=== PATIENT | female | born 1980 | race Caucasian/White ===

== ENCOUNTER 2017-09-27 00:02 | Inpatient (IN) | payer OTHER ==
[~2017-09-27] VITALS: Ht 165.1 cm; Wt 97.7 kg
[2017-09-27 00:34] LABS: HEMATOCRIT 36.1 % (36.0-46.0); MCH 27.6 PG (29.0-34.0); MCHC 33.2 G/DL (30.0-36.0); PLATELET COUNT 314 K/uL (156-360); RBC DIS.WIDTH-CV 14.4 % (11.8-14.6); RBC DIS.WIDTH-SD 43.3 % (39-53); RED BLOOD COUNT 4.35 M/uL (3.80-5.20); WHITE BLOOD COUNT 10.5 K/uL (4.1-10.2)
[2017-09-27 01:02] LABS: TROP-I INTERPRETATION NEGATIVE; TROPONIN-I < 0.01 ng/mL (0.0-0.30)
[2017-09-27 01:08] LABS: CHLORIDE 106 mEq/L (99-109); POTASSIUM 4.1 mEq/L (3.7-5.4); SODIUM 137 mEq/L (136-147)
[2017-09-27 01:09] LABS: GLUCOSE 105 mg/dL (70-99)
[2017-09-27 01:13] LABS: CREATININE 0.6 mg/dL (0.6-1.3)
[2017-09-27 01:14] LABS: UREA NITROGEN (BUN) 16 mg/dL (9-23)
[2017-09-27 01:17] LABS: GFR ESTIMATE (CALCULATED) > 59 mL/min/
[2017-09-27 04:46] VITALS: BP 130/83
[2017-09-27 04:49] LABS: CREATINE KINASE 2325 IU/L (1-294); HDL CHOLESTEROL 56 MG/DL (Desirable>=50); LDL CHOLESTEROL 146 mg/dL (Desirable<100); NON-HDL CHOLESTEROL 201 mg/dL (Desirable<160); TOTAL CHOLESTEROL 257 mg/dL (Desirable<200); TRIGLYCERIDES 274 MG/DL (Normal: <150)
[2017-09-27 07:11] VITALS: BP 110/71
[2017-09-27 10:00] LABS: HEMOGLOBIN A1c (GLYCOHEMOGLOB) 5.7 % (Below 5.7)
[2017-09-27 11:24] VITALS: BP 129/75
[2017-09-27] MEDS ORDERED: TYLENOL EXTRA500 MG PO (11:51)
[2017-09-27] MEDS ORDERED: MOTRIN IB200 MG PO (11:52)
[2017-09-27 12:14] LABS: C-REACTIVE PROTEIN 6.3 MG/L (0-10); IRON 131 MCG/DL (35-150)
[2017-09-27 12:17] LABS: CREATINE KINASE 1473 IU/L (1-294)
[2017-09-27 12:23] LABS: THYROTROPIN (TSH) 1.2 MIU/L (0.4-5.5)
[2017-09-27 12:27] LABS: SERUM ETHYL ALCOHOL < 10 mg/dL
[2017-09-27 15:20] VITALS: BP 121/80
[2017-09-27 19:22] VITALS: BP 133/80
[2017-09-27 23:19] VITALS: BP 122/66
[2017-09-28 00:03] LABS: APPEARANCE SL.HAZY ((CLEAR)); BILIRUBIN NEGATIVE; BLOOD NEGATIVE; COLOR YELLOW ((YELLOW)); GLUCOSE (STRIP) NEGATIVE; KETONES NEGATIVE; LEUKOCYTES NEGATIVE; NITRITE NEGATIVE; PROTEIN (STRIP) NEGATIVE; SPECIFIC GRAVITY 1.019 (1.000-1.030); UROBILINOGEN 0.2 MG/DL (0.2-1.0)
[2017-09-28 00:07] LABS: EPITHELIAL CELLS 1+ /HPF; RED BLOOD CELLS 0-5 /HPF (0-5); WHITE BLOOD CELLS 0-5 /HPF (0-5)
[2017-09-28 00:08] LABS: BACTERIA NONE SEEN /HPF; MUCUS TRACE /LPF; UCUL ADDED? NO
[2017-09-28 01:34] LABS: BENZODIAZEPINES, URINE SCREEN Negative (200 ng/mL)
[2017-09-28 03:39] VITALS: BP 118/62
[2017-09-28 05:28] LABS: BASOPHIL (%) 0.4 % (0-1); EOSINOPHIL (%) 3.7 % (0-5); EOSINOPHIL COUNT 0.3 K/uL (0-0.3); HEMOGLOBIN 11.5 G/DL (11.9-15.5); IMMATURE GRANULOCYTE (%) 0.5 % (0.0-0.7); LYMPHOCYTE (%) 49.4 % (15-42); LYMPHOCYTE COUNT 4.2 K/uL (1.0-2.8); MCH 27.3 PG (29.0-34.0); MCHC 31.9 G/DL (30.0-36.0); MCV 85.5 FL (83-99); MONOCYTE COUNT 0.3 K/uL (0-0.8); NEUTROPHIL COUNT 3.6 K/uL (1.8-6.4); PLATELET COUNT 285 K/uL (156-360); RBC DIS.WIDTH-CV 13.6 % (11.8-14.6); RBC DIS.WIDTH-SD 42.6 % (39-53); RED BLOOD COUNT 4.21 M/uL (3.80-5.20); WHITE BLOOD COUNT 8.5 K/uL (4.1-10.2)
[2017-09-28 05:49] LABS: CHLORIDE 108 MEQ/L (99-109); CREATINE KINASE 670 IU/L (1-294); CREATININE 0.5 MG/DL (0.6-1.3); GFR ESTIMATE (CALCULATED) > 59 mL/min/; GLUCOSE 103 mg/dL (70-99); POTASSIUM 4.3 MEQ/L (3.7-5.4); SODIUM 137 MEQ/L (136-147); UREA NITROGEN (BUN) 11 mg/dL (9-23)
[2017-09-28 07:25] VITALS: BP 123/79
[2017-09-28 11:56] VITALS: BP 135/87
[2017-09-28] MEDS ORDERED: CYANOCOBAL1000 MCG/2 SC (12:35)
[2017-09-28 15:24] VITALS: BP 127/75
[2017-09-28 19:38] VITALS: BP 138/84
== END 2017-09-28 22:31 | disposition home or self-care (01) | DRG 558 ==
LOC: EME 00:02 → EDOF 03:29 → ENRESERV 03:33 → 4SOUTH 04:31
PROVIDERS: Emergency Medicine; Internal Medicine; Physician Assistant Medical
DX: M62.82 Rhabdomyolysis (principal); E53.8 Deficiency of other specified B group vitamins; G43.109 Migraine with aura, not intractable, without status migrainosus; E78.5 Hyperlipidemia, unspecified; F17.210 Nicotine dependence, cigarettes, uncomplicated; Z86.32 Personal history of gestational diabetes; Z79.82 Long term (current) use of aspirin; Z88.0 Allergy status to penicillin; Z83.3 Family history of diabetes mellitus
CPT/HCPCS: 70450; 70496; 70498; 80048; 80061; 80306 90; 81003; 82085 90; 82550; 82550 91; 82607; 82746; 83036; 83540; 84443; 84484; 85025; 85027; 85651; 86140; 93005; 99281; 99284; G0480; J1644; J3420; J7030; J7040

== ENCOUNTER 2017-10-02 16:20 | Inpatient (IN) | payer OTHER ==
[~2017-10-02] VITALS: Ht 165.1 cm; Wt 96.8 kg
[~2017-10-02 16:20] MED LIST: CYANOCOBAL1000 MCG/2 SC; MOTRIN IB200 MG PO; TYLENOL EXTRA500 MG PO
[2017-10-02 17:15] LABS: HEMOGLOBIN 12.7 G/DL (11.9-15.5); MCHC 33.4 G/DL (30.0-36.0); MCV 83.7 FL (83-99); PLATELET COUNT 306 K/uL (156-360); RBC DIS.WIDTH-CV 14.5 % (11.8-14.6); RBC DIS.WIDTH-SD 43.9 % (39-53); RED BLOOD COUNT 4.54 M/uL (3.80-5.20); WHITE BLOOD COUNT 10.6 K/uL (4.1-10.2)
[2017-10-02 17:34] LABS: CHLORIDE 105 mEq/L (99-109); POTASSIUM 4.3 mEq/L (3.7-5.4); SODIUM 137 mEq/L (136-147)
[2017-10-02 17:36] LABS: GLUCOSE 126 mg/dL (70-99)
[2017-10-02 17:39] LABS: CREATININE 0.7 mg/dL (0.6-1.3); GFR ESTIMATE (CALCULATED) > 59 mL/min/
[2017-10-02 17:40] LABS: UREA NITROGEN (BUN) 11 mg/dL (9-23)
[2017-10-02] MEDS ORDERED: TYLENOL EXTRA500 MG PO (18:28)
[2017-10-02 19:27] LABS: APPEARANCE SL.HAZY ((CLEAR)); BILIRUBIN NEGATIVE; BLOOD NEGATIVE; COLOR YELLOW ((YELLOW)); GLUCOSE (STRIP) NEGATIVE; KETONES NEGATIVE; LEUKOCYTES NEGATIVE; NITRITE NEGATIVE; PROTEIN (STRIP) NEGATIVE; SPECIFIC GRAVITY 1.023 (1.000-1.030)
[2017-10-02 19:31] LABS: BACTERIA NONE SEEN /HPF; EPITHELIAL CELLS 1+ /HPF; MUCUS TRACE /LPF; RED BLOOD CELLS 0-5 /HPF (0-5); UCUL ADDED? NO; WHITE BLOOD CELLS 0-5 /HPF (0-5)
[2017-10-02 19:46] LABS: CREATINE KINASE 15088 IU/L (1-294)
[2017-10-02 20:47] VITALS: BP 119/77
[2017-10-02 23:46] VITALS: BP 116/63
[2017-10-03 05:16] LABS: MCH 27.2 PG (29.0-34.0); MCHC 31.4 G/DL (30.0-36.0); MCV 86.6 FL (83-99); NRBC (%) 0.2 /100 WBC (0-0); PLATELET COUNT 275 K/uL (156-360); RBC DIS.WIDTH-CV 14.2 % (11.8-14.6); RBC DIS.WIDTH-SD 45.1 % (39-53); RED BLOOD COUNT 4.04 M/uL (3.80-5.20); WHITE BLOOD COUNT 8.1 K/uL (4.1-10.2)
[2017-10-03 05:47] LABS: ALBUMIN 2.9 G/DL (3.2-4.8); ALKALINE PHOSPHATASE 36 IU/L (3-129); ALT (GPT) 26 IU/L (3-49); AST (GOT) 51 IU/L (2-34); CHLORIDE 110 MEQ/L (99-109); CREATININE 0.5 MG/DL (0.6-1.3); GFR ESTIMATE (CALCULATED) > 59 mL/min/; POTASSIUM 4.7 MEQ/L (3.7-5.4); SODIUM 136 MEQ/L (136-147); TOTAL BILIRUBIN 0.4 MG/DL (0.0-1.0); TOTAL PROTEIN 4.8 G/DL (6.4-8.3); UREA NITROGEN (BUN) 11 mg/dL (9-23)
[2017-10-03 05:57] LABS: GLUCOSE 89 mg/dL (70-99)
[2017-10-03 05:58] LABS: CREATINE KINASE 7326 IU/L (1-294)
[2017-10-03 07:15] VITALS: BP 117/68
[2017-10-03 15:24] VITALS: BP 124/80
[2017-10-03 23:15] VITALS: BP 113/64
[2017-10-04 07:33] LABS: CHLORIDE 106 MEQ/L (99-109); CREATININE 0.5 MG/DL (0.6-1.3); GFR ESTIMATE (CALCULATED) > 59 mL/min/; GLUCOSE 95 mg/dL (70-99); POTASSIUM 4.3 MEQ/L (3.7-5.4); SODIUM 137 MEQ/L (136-147); UREA NITROGEN (BUN) 12 mg/dL (9-23)
[2017-10-04 07:37] LABS: CREATINE KINASE 4115 IU/L (1-294)
[2017-10-04 07:41] VITALS: BP 130/63
[2017-10-04 13:53] LABS: CK-MB 4.7 ng/mL (0.0-4.9)
[2017-10-04 15:27] LABS: CKMB RELATIVE INDEX 0.1 (0.0-3.9); TOTAL CK 3635 IU/L (1-294)
[2017-10-04 15:34] LABS: CREATINE KINASE 3635 IU/L (1-294)
[2017-10-04 16:26] VITALS: BP 129/84
== END 2017-10-04 16:31 | disposition home or self-care (01) | DRG 558 ==
LOC: EME 16:20 → EDOF 19:40 → 5EAST 19:40
PROVIDERS: Internal Medicine; Nurse Practitioner Family; Physician Assistant
DX: M62.82 Rhabdomyolysis (principal); F17.210 Nicotine dependence, cigarettes, uncomplicated; E53.8 Deficiency of other specified B group vitamins
CPT/HCPCS: 36415; 80048; 80053; 81003; 82550; 82550 91; 82553; 85027; 99281; 99285; J1650; J7030; J7120